=== PATIENT | male | born 1965 | race Caucasian/White ===

== ENCOUNTER → 2017-06-28 | Outpatient (CLI) | payer OTHER ==
--- NOTE | 2017-06-28 08:43 | MR ---
EXAMINATION TYPE: MR cervical spine wo con DATE OF EXAM: 06/28/2017 COMPARISON: NONE HISTORY: csp myelopathy and neck pain TECHNIQUE: Multiplanar, multisequence images of the cervical spine were acquired. C2-C3: No evidence for degenerative disc disease. No disc bulge/herniation or protrusion. No Canal stenosis. Foramina are patent bilaterally. C3-C4: Right-sided foraminal encroachment is present due to uncovertebral joint hypertrophy and facet arthropathy. C4-C5: No evidence for degenerative disc disease. No disc bulge/herniation or protrusion. No Canal stenosis. Foramina are patent bilaterally. C5-C6: Bilateral foraminal encroachment is mild due to lateral extension of endplate disc complexes. No significant central stenosis or sizable disc herniation. C6-C7: Posterior broad-based disc bulge causes mild anterior mass effect on the thecal sac. No signif icant central stenosis foraminal encroachment. C7-T1: No evidence for degenerative disc disease. No disc bulge/herniation or protrusion. No Canal stenosis. Foramina are patent bilaterally. Cervical segments are intact. There is normal alignment. Cervical spinal cord is of normal signal. Craniovertebral junction relationships are within normal limits. There is loss of disc height and s ignal at the intervertebral levels. Multilevel spondylosis present with endplate discogenic marrow si gnal change. Mild inflammatory change suspected in the sphenoid sinus. IMPRESSION: Degenerative disc disease as described. Foraminal encroachment also present.
== END | disposition home or self-care (01) ==
LOC: RADMRIMAIN 07:39
PROVIDERS: ATTEND Neurological Surgery
DX: M50.00 Cervical disc disorder with myelopathy, unspecified cervical region (principal)
CPT/HCPCS: 72141

== ENCOUNTER → 2018-01-30 | Outpatient (CLI) | payer OTHER ==
--- NOTE | 2018-01-30 14:33 | XR ---
Right knee HISTORY: Trauma and pain 3 views of the right knee Bone mineralization, joint spaces and alignment are maintained. No evident joint effusion. IMPRESSION: No radiographically apparent fracture or dislocation, follow-up as indicated.
== END | disposition home or self-care (01) ==
LOC: RADXRMAIN 14:12
PROVIDERS: ATTEND Emergency Medicine
DX: S80.01XA Contusion of right knee, initial encounter (principal)

== ENCOUNTER → 2018-03-12 | Outpatient (CLI) | payer OTHER ==
--- NOTE | 2018-03-12 07:52 | MR ---
EXAMINATION TYPE: MR knee RT wo con DATE OF EXAM: 03/12/2018 7:21 AM COMPARISON: NONE HISTORY: Right knee pain TECHNIQUE: Multiplanar, multisequence imaging of the right knee is performed. FINDINGS: MEDIAL MENISCUS: Anterior and posterior horns are intact without tear. LATERAL MENISCUS: Anterior and posterior horns are intact without tear. CRUCIATE LIGAMENTS: The anterior and posterior cruciate ligaments are intact and unremarkable. COLLATERAL LIGAMENTS: The medial collateral ligament and lateral collateral ligament complex are intact and unremarkable. EXTENSOR MECHANISM: Visualized quadriceps and patellar tendons are intact. EFFUSION: Small suprapatellar joint effusion is present. POPLITEAL CYST: Fluid collection seen posterior to the PCL measuring about 2.5 x 1.4 cm may reflect l ocalized fluid versus ganglion cyst. TRICOMPARTMENT SPACES: The tricompartment joint spaces appear within normal limits. CARTILAGE: Patellar cartilaginous defect upper pole measuring 7 x 2 mm. Smaller loose body suggested measuring 4 mm seen best on image 19 series 601. BONE MARROW SIGNAL: Bone marrow edema upper pole of the patella. No visible fractures seen at this ti me. OTHER: No additional significant abnormality is appreciated. IMPRESSION: 1. Bone marrow edema upper pole of the patella with cartilaginous defect and small loose body as note d. No evidence for osseous fracture. 2. Small joint effusion. 3. Focal fluid collection versus ganglion cyst adjacent to the PCL.
== END | disposition home or self-care (01) ==
LOC: RADMRIMAIN 06:49
PROVIDERS: ATTEND Emergency Medicine
DX: M25.461 Effusion, right knee (principal); M23.41 Loose body in knee, right knee; R60.0 Localized edema; M94.8X6 Other specified disorders of cartilage, lower leg

== ENCOUNTER → 2020-11-18 | Outpatient (CLI) | payer OTHER | END | disposition home or self-care (01) | LOC: LABWHC1 10:48 | PROVIDERS: ATTEND Nurse Practitioner Family | DX: R05 Cough (principal); R53.83 Other fatigue; Z20.828 Contact with and (suspected) exposure to other viral communicable diseases | CPT/HCPCS: U0003; C9803 ==

== ENCOUNTER 2023-07-08 18:47 | Emergency (ER) | payer OTHER, BC ==
[2023-07-08 18:57] VITALS: RESP 18; TEMP 98.2
[2023-07-08] MEDS ORDERED: LIDOCAINE 1% INJ 10MG/ML (20 ML MDV) SQ ONE (19:24)
--- NOTE | 2023-07-08 19:38 | ED ---
Upper Extremity HPI - General Chief Complaint: Extremity Injury, Upper Stated Complaint: [facility]-finger injury Time Seen by Provider: 07/08/23 18:58 Source: patient, RN notes reviewed Mode of arrival: ambulatory Limitations: no limitations - History of Present Illness Initial Comments: This is a 57-year-old male who presents to the emergency department for an injury to the right middle finger. States that he was at work when his finger got caught between a machine and the ground, causing this injury. Tetanus vaccine is up-to-date. Denies being in any significant pain at this time. He is still able to fully move the finger. Denies any fevers, chills, sore throat, cough, dyspnea, chest pain, palpitations, abdominal pain, nausea, vomiting, diarrhea, back pain, or headaches. MD Complaint: Injury to:: right, finger - Related Data Previous Rx's Medication Instructions Recorded Cephalexin [Keflex] 500 mg PO Q6HR 5 Days #20 cap 07/08/23 Allergies Allergy/AdvReac Type Severity Reaction Status Date / Time No Known Allergies Allergy Verified 07/08/23 18:56 Review of Systems ROS Statement: Those systems with pertinent positive or pertinent negative responses have been documented in the HPI. ROS Other: All systems not noted in ROS Statement are negative. Past Medical History Past Medical History: No Reported History History of Any Multi-Drug Resistant Organisms: None Reported Past Surgical History: Adenoidectomy, Tonsillectomy Past Psychological History: ADD/ADHD Smoking Status: Never smoker Past Alcohol Use History: None Reported Past Drug Use History: None Reported General Exam Limitations: no limitations General appearance: alert, in no apparent distress Head exam: Present: atraumatic, normocephalic, normal inspection Respiratory exam: Present: normal lung sounds bilaterally. Absent: respiratory distress, wheezes, rales, rhonchi, stridor Cardiovascular Exam: Present: regular rate, normal rhythm, normal heart sounds. Absent: systolic murmur, diastolic murmur, rubs, gallop, clicks Neurological exam: Present: alert, oriented X3, CN II-XII intact Psychiatric exam: Present: normal affect, normal mood Skin exam: Present: other (2 cm stellate laceration to the finger pad of the right middle finger with visible subcutaneous tissue. Minor active bleeding. Full range of motion.) Course Vital Signs 07/08/23 07/08/23 18:53 20:41 Temperature 98.2 F Pulse Rate 107 H 101 H Respiratory 18 18 Rate Blood Pressure 125/75 129/81 O2 Sat by Pulse 98 99 Oximetry Procedures - Laceration Laceration #1 Consent Obtained: verbal consent Indication: laceration Site: other (right middle finger) Size (cm): 2 Description: stellate, flap Depth: simple, single layer Anesthetic Used: lidocaine 1% Anesthesia Technique: local infiltration Amount (mls): 3 Pre-repair: wound explored, irrigated extensively Type of Sutures: nylon Size of Sutures: 4-0 Number of Sutures: 4 Technique: simple, interrupted Medical Decision Making - Medical Decision Making This is a 57-year-old male who presents to the emergency department for an injury to the right middle finger. Was pt. sent in by a medical professional or institution? @ -[facility] Did you speak to anyone other than the patient for history? @ -No Did you review nursing and triage notes? @ -Yes, and I agree, it is accurate with regards to the patient's symptoms. Were old charts reviewed? @ -No Differential Diagnosis? @ -Differential Finger Injury: Fracture, dislocation, contusion, laceration, sprain, this is not meant to be an all-inclusive list. EKG interpreted by me (3pts min.)? @ -Not obtained X-rays interpreted by me (1pt min.)? @ -X-ray of the right middle finger obtained. My interpretation identifies a fracture through the middle phalanx. CT interpreted by me (1pt min.)? @ -Not obtained U/S interpreted by me (1pt. min.)? @ -Not obtained What testing was considered but not performed? (CT, X-rays, U/S, labs)? Why? @ -None What meds were considered but not given? Why? @ -None Did you discuss the management of the patient with other professionals? @ -No Did you reconcile home meds? @ -No Was smoking cessation discussed for >3mins.? @ -No Was critical care preformed (if so, how long)? @ -No Were there social determinants of health that impacted care today? How? (Homelessness, low income, unemployed, alcoholism, drug addiction, transportation, low edu. Level, literacy, decrease access to med. care, prison, rehab)? @ -No Was there de-escalation of care discussed even if they declined? (Discuss DNR or withdrawal of care, Hospice)? @ -No What co-morbidities impacted this encounter? (DM, HTN, Smoking, COPD, CAD, Cancer, CVA, Hep., AIDS, mental health diagnosis, sleep apnea, morbid obesity)? @ -None Was patient admitted / discharged? @ -Discharged. His finger was initially soaked in a bucket of sterile water to thoroughly cleanse the wound. X-rays obtained revealing an acute fracture through the middle phalanx with soft tissue swelling. His tetanus vaccine is already up-to-date. Sutures were placed and a finger splint was applied. Prescription for Keflex provided with dosing instructions reviewed. Initial starter pack of Keflex administered in the emergency department. He is instructed to return in 5-7 days for suture removal. He was also given information for orthopedic follow-up with regards to the fracture in the middle phalanx. Undiagnosed new problem with uncertain prognosis? @ -None Drug Therapy requiring intensive monitoring for toxicity (Heparin, Nitro, Insulin, Cardizem)? @ -None Were any procedures done? @ -Laceration repair with sutures. Diagnosis/symptom? @ -Right middle finger phalanx fracture, laceration Acute, or Chronic, or Acute on Chronic? @ -Acute Uncomplicated (without systemic symptoms) or Complicated (systemic symptoms)? @ -Uncomplicated Side effects of treatment? @ -None Exacerbation, Progression, or Severe Exacerbation] @ -Not applicable Poses a threat to life or bodily function? @ -Will cause some limitation with use of his right middle finger. Return precautions reviewed in depth, the patient is instructed to return to the emergency department with any new, worsening, or concerning symptoms. Patient verbalized understanding. This case was discussed in detail with the attending ED physician, Dr. Black. Presentation, findings, and treatment plan discussed in detail as well. - Radiology Data Radiology results: report reviewed, image reviewed Disposition Clinical Impression: Fracture of phalanx of right middle finger, Laceration Disposition: HOME SELF-CARE Instructions (If sedation given, give patient instructions): Care For Your Stitches (ED), Finger Fracture (ED) Additional Instructions: Return to the emergency department with any new, worsening, or concerning symptoms and in 5-7 days for removal of the stitches. Take the antibiotic as prescribed for 5 days. Alternate with ibuprofen and Tylenol as needed for pain relief. Follow-up with orthopedics as listed below. Follow up with your primary care provider in 1-2 days. Prescriptions: Cephalexin [Keflex] 500 mg PO Q6HR 5 Days #20 cap Is patient prescribed a controlled substance at d/c from ED?: No Referrals: Edwin Higgins MD [Primary Care Provider] - 1-2 days Arnaldo Thompson DO [Doctor of Osteopathic Medicine] - 1-2 days
--- NOTE | 2023-07-08 20:06 | XR ---
EXAMINATION TYPE: XR finger RT DATE OF EXAM: 07/08/2023 7:48 PM INDICATION: Patient age:Male; 57 years old; Reason for study: Crush injury right middle finger. COMPARISON: None TECHNIQUE: Frontal, lateral and oblique views of the right fingers were obtained. FINDINGS/IMPRESSION: Acute fracture through the third digit middle phalanx best appreciated on oblique view. No additional fractures visualized. There is soft tissue swelling. Radiopaque focus could represent opaque foreign body.
[2023-07-08] MEDS ORDERED: CEPHALEXIN 500MG STARTER PACK 4 CAP BTL PO STA (20:23)
[2023-07-08] MEDS ORDERED: IBUPROFEN 600 MG STARTER PACK 4 TAB BTL PO STA (20:23)
[2023-07-08 20:43] VITALS: BP 129/81; PULSE 101
== END 2023-07-08 21:15 | disposition home or self-care (01) ==
LOC: EC 18:47
DX: S62.622A Displaced fracture of middle phalanx of right middle finger, initial encounter for closed fracture (principal); W23.0XXA Caught, crushed, jammed, or pinched between moving objects, initial encounter; Y99.0 Civilian activity done for income or pay
CPT/HCPCS: 73140; 99283; 12001; J2001

== ENCOUNTER 2024-01-02 13:40 | Emergency (ER) | payer BC, OTHER ==
--- NOTE | 2024-01-02 14:08 | ED ---
Abdominal Pain HPI - General Source: patient, RN notes reviewed Mode of arrival: ambulatory Limitations: no limitations <Ralph Spaulding - Last Filed: 01/02/24 14:07> <Kavon Erwin - Last Filed: 01/02/24 16:01> - General Chief Complaint: Abdominal Pain Stated Complaint: Abd pain lt side Time Seen by Provider: 01/02/24 14:07 - History of Present Illness Initial Comments: Patient is a 58-year-old male presented ER with a chief complaint of left groin pain. Patient states when on for the past couple of weeks. Patient denies any urinary complaints, consultation/diarrhea. Patient does have a history of hernias and he states it feels similar. Patient has a burning pain. Patient denies any other complaints. (Ralph Spaulding) Patient is a 58-year-old male presenting to the emergency room today with a chief complaint of left-sided groin pain over the last few weeks. He states his seems like he has pain that is intermittent. She states seems to be happening more often. Reminds him of a hernia that he had in the past on the opposite side. Patient states he is currently not having pain or discomfort. He denies any other complaints or any other associated symptoms. Patient denies any recent fever, chills, shortness of breath, chest pain, back pain, abdominal pain, nausea or vomiting, numbness or tingling, dysuria or hematuria, constipation or diarrhea, headaches or visual changes, or any other complaints. (Kavon Erwin) - Related Data Previous Rx's Medication Instructions Recorded Cephalexin [Keflex] 500 mg PO Q6HR 5 Days #20 cap 07/08/23 Allergies Allergy/AdvReac Type Severity Reaction Status Date / Time No Known Allergies Allergy Verified 07/08/23 18:56 Review of Systems ROS Other: All systems not noted in ROS Statement are negative. <Ralph Spaulding - Last Filed: 01/02/24 14:07> ROS Other: All systems not noted in ROS Statement are negative. <Kavon Erwin - Last Filed: 01/02/24 16:01> ROS Statement: Those systems with pertinent positive or pertinent negative responses have been documented in the HPI. Past Medical History Past Medical History: No Reported History History of Any Multi-Drug Resistant Organisms: None Reported Past Surgical History: Adenoidectomy, Hernia Repair, Tonsillectomy Past Psychological History: ADD/ADHD Smoking Status: Never smoker Past Alcohol Use History: None Reported Past Drug Use History: None Reported <Ralph Spaulding - Last Filed: 01/02/24 14:07> General Exam Limitations: no limitations <Ralph Spaulding - Last Filed: 01/02/24 14:07> <Kavon Erwin - Last Filed: 01/02/24 16:01> - General Exam Comments Initial Comments: Visual Physical Exam Vital signs reviewed General: Well-appearing, nontoxic, no acute distress. Head: Normocephalic, atraumatic Eyes: PERRLA, EOMI ENT: Airway patent Chest: Nonlabored breathing Skin: No visual rash, normal skin tone Neuro: Alert and oriented 3 Musculoskeletal: No gross abnormalities (Ralph Spaulding) General: The patient is awake and alert, in no distress, and does not appear acutely ill. Eye: Extra-ocular movements are intact. There is normal conjunctiva bilaterally. No signs of icterus. Ears, nose, mouth and throat: There are moist mucous membranes and no oral lesions. Neck: The neck is supple, there is no tenderness or JVD. Cardiovascular: There is a regular rate and rhythm. No murmur, rub or gallop is appreciated. Respiratory: Lungs are clear to auscultation, respirations are non-labored, breath sounds are equal. No wheezes, stridor, rales, or rhonchi. Gastrointestinal: Soft nontender. No rebound, guarding or CVA tenderness. : Patient has no redness, swelling. No drainage. No testicular discomfort or pain. No appreciable hernia palpated. (Patient states no pain at this time) Musculoskeletal: Normal ROM, no tenderness. Strength 5/5. Sensation intact. Pulses equal bilaterally 2+. Neurological: A&O x 3. CN II-XII intact, There are no obvious motor or sensory deficits. Coordination appears grossly intact. Speech is normal. Skin: Skin is warm and dry and no rashes or lesions are noted. Psychiatric: Cooperative, appropriate mood & affect, normal judgment. (Kavon Erwin) Course Vital Signs 01/02/24 13:48 Temperature 98 F Pulse Rate 97 Respiratory 16 Rate Blood Pressure 145/98 O2 Sat by Pulse 99 Oximetry Medical Decision Making <Ralph Spaulding - Last Filed: 01/02/24 14:07> <Kavon Erwin - Last Filed: 01/02/24 16:01> - Medical Decision Making I performed the quick note portion of the exam. Electronically signed by Ralph Spaulding PA-C (Ralph Spaulding) History was obtained from patient/Nurse/Family/ Initial assessment and chief complaint: Groin pain Chronic conditions affecting care: None Social determinants affecting care: None Differential diagnosis included, but not limited to: Inguinal hernia, colitis, muscle strain, diverticulitis, gastroenteritis Patient 58-year-old male presented to the emergency room today with a chief complaint of left-sided inguinal pain. He does admit the pain is intermittent. Patient vitals are stable here in the emergency room. No fever. Abdomen soft nontender. No inguinal tenderness on exam. No redness. Patient has been pain- free here in the emergency room. Was discussed about following with general surgery for concern for hernia. Advised to return if pain is persistent or for any other concerns. States understanding and is agreement this plan. (Kavon Erwin) - Lab Data Lab Results 01/02/24 Range/Units 14:07 Urine Color Light Yellow Urine Appearance Clear (Clear) Urine pH 5.5 (5.0-8.0) Ur Specific [place] 1.028 (1.001-1.035) Urine Protein Negative (Negative) Urine Glucose (UA) Negative (Negative) Urine Ketones Negative (Negative) Urine Blood Trace H (Negative) Urine Nitrite Negative (Negative) Urine Bilirubin Negative (Negative) Urine Urobilinogen <2.0 (<2.0) mg/dL Ur Leukocyte Esterase Negative (Negative) Urine RBC 2 (0-5) /hpf Urine WBC 2 (0-5) /hpf Ur Squamous Epith Cells <1 (0-4) /hpf Urine Mucus Rare H (None) /hpf Disposition <Ralph Spaulding - Last Filed: 01/02/24 14:07> Is patient prescribed a controlled substance at d/c from ED?: No Time of Disposition: 16:01 <Kavon Erwin - Last Filed: 01/02/24 16:01> Clinical Impression: Groin pain Disposition: HOME SELF-CARE Condition: Good Instructions (If sedation given, give patient instructions): Inguinal Hernia (ED) Additional Instructions: Please follow-up with general surgeon as discussed. Return to the emergency room for any other concerns. Referrals: Edwin Higgins MD [Primary Care Provider] - 1-2 days Kavon Alba MD [Medical Doctor] - 1-2 days
[2024-01-02 15:15] LABS: Appearance,Urine Clear (Clear); Bilirubin,Urine Negative (Negative); Blood,Urine Trace (Negative); Color,Urine Light Yellow; Glucose,Urine (UA) Negative (Negative); Ketones,Urine Negative (Negative); Leukocyte Esterase,Urine Negative (Negative); Mucus,Urine Rare /hpf; Nitrite,Urine Negative (Negative); PH, Urine 5.5 (5.0-8.0); Protein,Urine Negative (Negative); RBC,Urine 2 /hpf (0-5); Specific Gravity,Urine 1.028 (1.001-1.035); Squamous Epithelial Cell,Urine <1 /hpf (0-4); Urobilinogen,Urine <2.0 mg/dL (<2.0); WBC,Urine 2 /hpf (0-5)
[2024-01-02 16:51] VITALS: BP 155/85; PULSE 81; RESP 18; TEMP 98
== END 2024-01-02 16:20 | disposition home or self-care (01) ==
LOC: EC 13:40
DX: R10.30 Lower abdominal pain, unspecified (principal); Z86.59 Personal history of other mental and behavioral disorders
CPT/HCPCS: 81001; 99284

== ENCOUNTER 2024-01-31 08:43 | Emergency (ER) | payer BC, OTHER ==
--- NOTE | 2024-01-31 09:27 | ED ---
Abdominal Pain HPI - General Chief Complaint: Abdominal Pain Stated Complaint: hernia Time Seen by Provider: 01/31/24 09:00 Source: patient, RN notes reviewed, old records reviewed Mode of arrival: ambulatory Limitations: no limitations - History of Present Illness MD Complaint: abdominal pain - Related Data Previous Rx's Medication Instructions Recorded Cephalexin [Keflex] 500 mg PO Q6HR 5 Days #20 cap 07/08/23 Allergies Allergy/AdvReac Type Severity Reaction Status Date / Time No Known Allergies Allergy Verified 01/31/24 09:05 Review of Systems ROS Statement: Those systems with pertinent positive or pertinent negative responses have been documented in the HPI. ROS Other: All systems not noted in ROS Statement are negative. Past Medical History Past Medical History: No Reported History History of Any Multi-Drug Resistant Organisms: None Reported Past Surgical History: Adenoidectomy, Hernia Repair, Tonsillectomy Past Psychological History: ADD/ADHD Smoking Status: Never smoker Past Alcohol Use History: None Reported Past Drug Use History: None Reported General Exam - General Exam Comments Initial Comments: Patient is a 58-year-old male who presents to the ED with a chief complaint of left lower abdominal pain. Patient states that he does have an inguinal hernia which he was diagnosed with at the beginning of January. He states that his pain is increasing in duration and frequency. Patient's discomfort is located at site of reducible hernia. Patient states that he has a fullness type sensation in his lower abdomen. Patient denies any discoloration to the area and the hernia is reducible. Patient currently wears a hernia belt. Patient states that he saw his primary care physician this morning concerning his pain who referred him to the ED for further management. States that he has not reached out to any general surgeons for further evaluation and treatment. Patient states the previous general surgeon who did which repaired his old hernia is no longer in practice. Patient has a history of an inguinal hernia repair on the right side a few years ago that was repaired with mesh. Patient denies any complications from prior surgery. Denies fevers, nausea, vomiting, urinary frequency or suprapubic tenderness or discomfort. Limitations: no limitations General appearance: alert, in no apparent distress Head exam: Present: atraumatic, normocephalic, normal inspection Eye exam: Present: normal appearance, PERRL, EOMI. Absent: scleral icterus, conjunctival injection, periorbital swelling Neck exam: Present: normal inspection. Absent: tenderness, meningismus, lymphadenopathy Respiratory exam: Present: normal lung sounds bilaterally. Absent: respiratory distress, wheezes, rales, rhonchi, stridor Cardiovascular Exam: Present: regular rate, normal rhythm, normal heart sounds. Absent: systolic murmur, diastolic murmur, rubs, gallop, clicks GI/Abdominal exam: Present: soft, tenderness (left inguinal region), normal bowel sounds. Absent: distended, guarding, rebound, rigid Course Vital Signs 01/31/24 01/31/24 09:03 10:05 Temperature 98 F 98 F Pulse Rate 77 70 Respiratory 20 19 Rate Blood Pressure 149/89 122/78 O2 Sat by Pulse 100 98 Oximetry Medical Decision Making - Medical Decision Making Was pt. sent in by a medical professional or institution (AMITA Gutierrez, MANAGER DENTAL, urgent ca re, hospital, or [place] [facility] facility...) When possible be specific @ -No Did you speak to anyone other than the patient for history (EMS, parent, family, police, friend...)? What history was obtained from this source @ -No Did you review nursing and triage notes (agree or disagree)? Why? @ -I reviewed and agree with nursing and triage notes Were old charts reviewed (outside hosp., previous admission, EMS record, old EKG, old radiological studies, urgent care reports/EKG's, [place] [facility] facility records)? Report findings @ -Reviewed ED chart from the beginning of January that noted patient having a left inguinal hernia. Differential Diagnosis (chest pain, altered mental status, abdominal pain women, abdominal pain men, vaginal bleeding, weakness, fever, dyspnea, syncope, headache, dizziness, GI bleed, back pain, seizure, CVA, palpatations, mental health, musculoskeletal)? @ -Differential Abdominal Pain Men: Appendicitis, cholecystitis, diverticulosis, ischemic bowel, pancreatitis, hepatitis, UTI, gastroenteritis, AAA, incarcerated hernia, bowel obstruction, constipation, inflammatory bowel, hepatitis, peptic ulcer disease, splenic infarction, perforated viscus, testicular torsion, this is not meant to be an all-inclusive list EKG interpreted by me (3pts min.). @ -None X-rays interpreted by me (1pt min.). @ -None done CT interpreted by me (1pt min.). @ -None done U/S interpreted by me (1pt. min.). @ -None done What testing was considered but not performed or refused? (CT, X-rays, U/S, lab s)? Why? @ -None What meds were considered but not given or refused? Why? @ -None Did you discuss the management of the patient with other professionals (professionals i.e. , PA, MANAGER DENTAL, lab, RT, psych nurse, director social, sander wooden pencils, teacher, safety and security officer, case operator)? Give summary @ -No Was smoking cessation discussed for >3mins.? @ -No Was critical care preformed (if so, how long)? @ -No Were there social determinants of health that impacted care today? How? (Homelessness, low income, unemployed, alcoholism, drug addiction, transportation, low edu. Level, literacy, decrease access to med. care, long-term, rehab)? @ -No Was there de-escalation of care discussed even if they declined (Discuss DNR or withdrawal of care, Hospice)? DNR status @ -No What co-morbidities impacted this encounter? (DM, HTN, Smoking, COPD, CAD, Cancer, CVA, ARF, Chemo, Hep., AIDS, mental health diagnosis, sleep apnea, morbid obesity)? @ -None Was patient admitted / discharged? Hospital course, mention meds given and route, prescriptions, significant lab abnormalities, going to OR and other pertinent info. @ -Discharge. Patient given Toradol which aided in pain relief. basic chemistry panel and lactate within normal limits. Undiagnosed new problem with uncertain prognosis? @ -No Drug Therapy requiring intensive monitoring for toxicity (Heparin, Nitro, Insulin, Cardizem)? @ -No Were any procedures done? @ -No Diagnosis/symptom? @ -Inguinal hernia Acute, or Chronic, or Acute on Chronic? @ -Acute Uncomplicated (without systemic symptoms) or Complicated (systemic symptoms)? @ -Uncomplicated Side effects of treatment? @ -No Exacerbation, Progression, or Severe Exacerbation? @ -No Poses a threat to life or bodily function? How? (Chest pain, [place], [place], pneumonia, PE, COPD, DKA, ARF, appy, cholecystitis, CVA, Diverticulitis, Homicidal, Suicidal, threat to staff... and all critical care pts) @ -No - Lab Data Result diagrams: 01/31/24 09:37 Lab Results 01/31/24 01/31/24 Range/Units 09:37 09:37 Sodium 139 (137-145) mmol/L Potassium 4.3 (3.5-5.1) mmol/L Chloride 109 H (98-107) mmol/L Carbon Dioxide 25 (22-30) mmol/L Anion Gap 5 mmol/L BUN 24 H (9-20) mg/dL Creatinine 0.87 (0.66-1.25) mg/dL Est GFR (CKD-EPI)AfAm >90 (>60 ml/min/1.73 sqM) Est GFR (CKD-EPI)NonAf >90 (>60 ml/min/1.73 sqM) Glucose 94 (74-99) mg/dL Plasma Lactic Acid Brandon 0.8 (0.7-2.0) mmol/L Calcium 9.2 (8.4-10.2) mg/dL Total Bilirubin 0.9 (0.2-1.3) mg/dL AST 23 (17-59) U/L ALT 20 (4-49) U/L Alkaline Phosphatase 69 (38-126) U/L Total Protein 6.4 (6.3-8.2) g/dL Albumin 4.0 (3.5-5.0) g/dL Disposition Clinical Impression: Inguinal hernia of left side without obstruction or gangrene Disposition: HOME SELF-CARE Condition: Good Is patient prescribed a controlled substance at d/c from ED?: No Referrals: Nonstaff,Physician [REFERRING] - 1-2 days Nicolasa Hernandez MD [STAFF PHYSICIAN] - 1-2 days Po London MD [STAFF PHYSICIAN] - 1-2 days
[2024-01-31] MEDS: KETOROLAC 15 MG/ML 1 ML VIAL IVP STA (09:38)
[2024-01-31 10:12] LABS: ALT 20 U/L (4-49); AST 23 U/L (17-59); African American GFR (CKD) >90 (>60 ml/min/1.73 sqM); Alkaline Phosphatase 69 U/L (38-126); Anion Gap 5 mmol/L; Blood Urea Nitrogen 24 mg/dL (9-20); Calcium 9.2 mg/dL (8.4-10.2); Carbon Dioxide 25 mmol/L (22-30); Chloride 109 mmol/L (98-107); Glucose 94 mg/dL (74-99); Non-African American GFR(CKD) >90 (>60 ml/min/1.73 sqM); Potassium 4.3 mmol/L (3.5-5.1); Sodium 139 mmol/L (137-145); Total Bilirubin 0.9 mg/dL (0.2-1.3); Total Protein 6.4 g/dL (6.3-8.2)
[2024-01-31 12:15] VITALS: BP 113/70; PULSE 77; RESP 18; TEMP 98.3
== END 2024-01-31 10:55 | disposition home or self-care (01) ==
LOC: EC 08:43
DX: K40.90 Unilateral inguinal hernia, without obstruction or gangrene, not specified as recurrent (principal); Z86.59 Personal history of other mental and behavioral disorders
CPT/HCPCS: 36415; 80053; 83605; 99284; 96374; J1885

== ENCOUNTER → 2024-02-07 | Outpatient (CLI) | payer BC, OTHER | END | disposition home or self-care (01) | LOC: LABPAT 10:45 | PROVIDERS: ATTEND Surgery | DX: Z01.818 Encounter for other preprocedural examination (principal); K40.90 Unilateral inguinal hernia, without obstruction or gangrene, not specified as recurrent | CPT/HCPCS: 85025; 86850; 86900; 86901; 93005 ==

== ENCOUNTER → 2024-02-10 | Outpatient (CLI) | payer BC, OTHER ==
[2024-02-10 12:04] LABS: Basophils % (A) 0 %; Eosinophils # (A) 0.2 k/uL (0-0.7); Eosinophils % (A) 3 %; HCT 47.7 % (39.0-53.0); HGB 16.1 gm/dL (13.0-17.5); Lymphocytes % (A) 27 %; MCH 29.3 pg (25.0-35.0); MCHC 33.8 g/dL (31.0-37.0); MCV 86.7 fL (80.0-100.0); Mean Platelet Volume 7.2; Monocytes # (A) 0.3 k/uL (0-1.0); Monocytes % (A) 4 %; Neutrophils # (A) 4.9 k/uL (1.3-7.7); Neutrophils % (A) 65 %; Platelet Count 198 k/uL (150-450); RDW 12.3 % (11.5-15.5); WBC 7.4 k/uL (3.8-10.6)
== END | disposition home or self-care (01) ==
LOC: LABPAT 11:49
PROVIDERS: ATTEND Surgery
DX: Z01.812 Encounter for preprocedural laboratory examination (principal); K40.90 Unilateral inguinal hernia, without obstruction or gangrene, not specified as recurrent
CPT/HCPCS: 36415; 85025

== ENCOUNTER 2024-02-19 06:36 | Day surgery (SDC) | payer BC, OTHER ==
[2024-02-13 14:40] VITALS: BMI 22.9
[2024-02-19] MEDS ORDERED: HYDROmorphone 0.5 MG/0.5 ML SYRINGE IVP PRN (07:00)
[2024-02-19] MEDS: ACETAMINOPHEN TAB 500 MG TAB PO PRN (07:35)
[2024-02-19] MEDS: LACTATED RINGERS 1,000 ML IV SCH (07:45)
[2024-02-19] MEDS: LIDOCAINE 1% (10MG/ML) FOR IV START INTRADERMA ONE (07:47)
[2024-02-19] MEDS: ONDANSETRON 4 MG/2 ML VIAL IVP ONE (07:48)
[2024-02-19] MEDS: DEXAMETHASONE SOD PHOSPHATE 4 MG/ML 1 ML VIAL IV ONE (07:49)
[2024-02-19] MEDS: HEPARIN SODIUM,PORCINE 5,000 UNIT/ML 1 ML VIAL SQ PRN (08:24)
[2024-02-19] MEDS ORDERED: KETOROLAC 15 MG/ML 1 ML VIAL ONE (08:25)
[2024-02-19] MEDS ORDERED: fentaNYL (PF) 50 MCG/ML 2 ML AMP ONE (08:25)
[2024-02-19] MEDS ORDERED: NEOSTIGMINE 1 MG/ML 10 ML VIAL ONE (08:25)
[2024-02-19] MEDS ORDERED: PROPOFOL 10 MG/ML 20 ML VIAL IV ONE (08:25)
[2024-02-19] MEDS ORDERED: MIDAZOLAM 2 MG/2 ML VIAL ONE (08:25)
[2024-02-19] MEDS ORDERED: LIDOCAINE 1% INJ 10MG/ML (20 ML MDV) ONE (08:25)
[2024-02-19] MEDS ORDERED: SUCCINYLCHOLINE CHLORIDE 200 MG/10 ML VIAL IV ONE (08:25)
[2024-02-19] MEDS ORDERED: KETAMINE HCL IN 0.9 % NACL 50 MG/5 ML SYRINGE ONE (08:25)
[2024-02-19] MEDS ORDERED: GLYCOPYRROLATE 0.2 MG/ML 2 ML VIAL ONE (08:25)
[2024-02-19] MEDS ORDERED: ROCURONIUM 10 MG/ML (5 ML VIAL) IV ONE (08:25)
[2024-02-19] MEDS: LIDOCAINE 1%-EPI 1:100,000 50 ML VIAL SQ ONE ×2 (08:52)
--- NOTE | 2024-02-19 09:16 | P.OP ---
Date of Procedure: 02/19/24 Preoperative Diagnosis: Left inguinal hernia Postoperative Diagnosis: Left inguinal hernia Procedure(s) Performed: Laparoscopic robotic-assisted repair of left femoral hernia Excision of cord lipoma Transverse and costal block Anesthesia: MAGNO Surgeon: Po London Estimated Blood Loss (ml): 5 Pathology: other (Cord lipoma) Condition: stable Disposition: PACU Description of Procedure: The patient's placed on the operating table in the supine position. The patient received general anesthesia. The patient's abdomen was prepped and draped in usual sterile fashion. The skin was anesthetized 1% local Xylocaine at the incision sites. Using an 11 blade a skin incision was made at the umbilicus. The fascia was grasped with a [place] and then the peritoneal cavity was entered with the Veress needle. Position of the Veress needle was confirmed with a positive drop test. After adequate insufflation a 5 mm trocar was placed into the peritoneal cavity. The Laparoscope was placed the peritoneal cavity. And a robotic 8 mm trocar was placed in the right lateral position and then another 8 mm robotic trochars placed in the left lateral position. The original 5 mm trocar was exchanged for a 12 mm trocar. The patient received a 4 quadrant transverse abdominal block. The block was performed 1% local Xylocaine. The patient was placed in reverse Trendelenburg and then the patient was docked to the robot. Next the peritoneum over top of the hernia was incised and then using blunt and sharp dissection and electrocautery the hernia sac was dissected free from the floor of the inguinal canal. The cord lipoma was dissected free and sent to pathology. The hernia sac was completely reduced into the peritoneal cavity. And then using the [employer] and grounds superintendent mesh the hernia was repaired. The peritoneum was then sutured with 20V lock suture. The patient was then undocked the robot. The needle was withdrawn from the peritoneal cavity. The umbilical trocar site was closed with 0 Ethibond suture. The skin was closed interrupted 3-0 Monocryl suture. Dermabond dressing was applied. Patient was sent to recovery in stable condition.
[2024-02-19 09:41] VITALS: TEMP 98.1
[2024-02-19] MEDS: LACTATED RINGERS 1,000 ML IV ONE (09:57)
[2024-02-19 11:38] VITALS: BP 135/80; PULSE 80; RESP 18
== END 2024-02-19 11:57 | disposition home or self-care (01) ==
LOC: OR 06:36
PROVIDERS: ATTEND Surgery
DX: K40.90 Unilateral inguinal hernia, without obstruction or gangrene, not specified as recurrent (principal); D17.6 Benign lipomatous neoplasm of spermatic cord; Z98.890 Other specified postprocedural states
CPT/HCPCS: 49650; 88304; C1781; J2250; J0330; J1644; J1100; J2710; J0690; J2405; J2001; J3010; J1885; J2704